=== PATIENT | male | born 1960 | race Caucasian/White ===

== ENCOUNTER 2021-01-29 01:01 | Day surgery (SDC) | payer OTHER, SELFPAY ==
[2021-01-20 14:49] VITALS: BMI 25.2
--- NOTE | 2021-01-28 14:07 | WPDANESEPPF ---
Anes - Initial Pre Proc Eval Procedure: Operation Date: 01/29/21 08:15 Proposed Procedures p Screening Colonoscopy - Alfredito Churchill MD Date/Time: 01/28/21 14:07 Surgeon: Alfredito Churchill MD Pre Op Diagnosis: neoplasm screening Patient Data Age: 60 Gender: M Height: 1.78 m Weight: 80 kg Allergies Allergy/AdvReac Type Severity Reaction Status Date / Time lisinopril Allergy Cough Verified 01/29/21 06:57 Home Medications Medication Instructions Recorded Confirmed Type rosuvastatin 10 mg tablet 10 mg PO DAILY #90 tablet 09/09/20 01/20/21 Rx amlodipine 5 mg tablet 5 mg PO DAILY #90 tablet 11/20/20 01/20/21 Rx losartan 50 mg tablet See Rx Instructions .ROUTE 12/16/20 01/20/21 Rx .COMPLEX #90 tablet cholecalciferol (vitamin D3) 125 125 mcg PO DAILY #1 cap 12/26/20 01/20/21 Rx mcg (5,000 unit) capsule Patient hx anesthesia problems: none Family hx anesthesia problems: none Results Review: All pre-operative results and documents have been reviewed as part of the pre-operative evaluation. [facility] Past Medical History Medical History (Updated 01/28/21 @ 14:07 by Keaton Moulton DO) Diabetes Essential hypertension Hernia (~2009) Hyperlipidemia Surgical History Surgical History History of hip surgery 1977 Family History Family History Father Heart disease Grandparent Heart disease Social History Social History (Updated 12/26/20 @ 08:56 by Laquita Ross CNA) Smoking status: Never smoker Second hand tobacco smoke exposure: No Alcohol intake: current Drinks per week: 2 Alcohol use details: pt drinks beer Substance use: former Substance use type: marijuana Anes - Eval Final PreProcedure Day of Procedure 01/28/21 14:07 Patient weight: overweight Heart: regular rate and rhythm Lungs: clear to auscultation and normal air movement Airway: Mallampati scale class III Neurological: alert and oriented Last oral intake: >/= 8 hours ASA classification: III Emergent: no Anesthetic plan: proceed Anesthesia type and monitoring: general GIVS and standard monitoring Results Review: All pre-operative results and documents have been reviewed as part of the pre-operative evaluation. Informed Consent: The patient's anesthetic plan and its attendant risks and benefits were discussed with the patient/family/POA. Questions were solicited and answers provided to the satisfaction of the patient/family/POA.
[2021-01-29 06:58] VITALS: BP 130/89; PULSE 72; RESP 18; TEMP 36.4; O2SAT 98
[2021-01-29] MEDS: LACTATED RINGERS 1,000 ML 150 ML IV CONT (07:07)
--- NOTE | 2021-01-29 08:02 | PM.HPGS ---
History of Present Illness History of Present Illness Consent: Risks, benefits, and alternatives have been discussed and questions answered. Patient agrees to proceed with procedure. Chief complaint: neoplasm screening Narrative: Cristhian Jurado is a 60 year old male here for first screening colonoscopy Review of Systems Constitutional: Constitutional: Denies headache(s) and Denies weakness Eyes: Eyes: Denies blurry vision ENT: Reports Normal hearing present, Denies headache(s) and Denies neck pain Cardiovascular: Cardiovascular: Denies chest pain and Denies dyspnea Respiratory: Respiratory: Denies dyspnea Gastrointestinal: Gastrointestinal: Reports no additional gastrointestinal complaints Genitourinary: Genitourinary: Denies dysuria Musculoskeletal: Musculoskeletal: Denies neck pain Integumentary/Breasts: Skin/Breast: Denies dry skin Neurologic: Reports Normal hearing present, Denies headache(s) and Denies weakness Psychiatric: Psychiatric: Denies anxiety Endocrine: Endocrine: Denies change in body appearance Hematologic/Lymphatic: Hematologic/Lymphatic: Denies easy bleeding Allergic/Immunologic: Allergic/Immunologic: Denies urticaria PMFSH Past Medical History Medical History (Updated 01/28/21 @ 14:07 by Keaton Moulton, ) Diabetes Essential hypertension Hernia (~2009) Hyperlipidemia Surgical History Surgical History History of hip surgery 1977 Family History Family History Father Heart disease Grandparent Heart disease Social History Social History (Updated 12/26/20 @ 08:56 by Laquita Ross CNA) Smoking status: Never smoker Second hand tobacco smoke exposure: No Alcohol intake: current Drinks per week: 2 Alcohol use details: pt drinks beer Substance use: former Substance use type: marijuana Meds Home Medications and Allergies Home Medications Medication Instructions Recorded Confirmed Type rosuvastatin 10 mg tablet 10 mg PO DAILY #90 tablet 09/09/20 01/20/21 Rx amlodipine 5 mg tablet 5 mg PO DAILY #90 tablet 11/20/20 01/20/21 Rx losartan 50 mg tablet See Rx Instructions .ROUTE 12/16/20 01/20/21 Rx .COMPLEX #90 tablet cholecalciferol (vitamin D3) 125 125 mcg PO DAILY #1 cap 12/26/20 01/20/21 Rx mcg (5,000 unit) capsule Allergies Allergy/AdvReac Type Severity Reaction Status Date / Time lisinopril Allergy Cough Verified 01/29/21 06:57 Vital Signs Vital Signs - 24 hr 01/29/21 06:58 Temperature 97.6 F Pulse Rate 72 Respiratory Rate 18 Blood Pressure 130/89 Pulse Oximetry 98 Exam Const: General: comfortable and no acute distress HENMT: General nose exam: Normal nares present Eyes: General: appearance normal, both eyes and all related structures Neck: Neck: no JVD Resp: Auscultation: clear to auscultation bilaterally Cardio: Rate: regular rate Rhythm: regular rhythm GI: Inspection: non-distended GI Palp: Yes Soft to palpation Skin: General skin exam: normal color Neuro: General: gait normal Speech: normal speech Extrem: General: normal to inspection Psych: Mental Status: mental status grossly normal Assessment and Plan Assessment and plan (1) Encounter for screening colonoscopy: Code(s): Z12.11 - Encounter for screening for malignant neoplasm of colon Status: Acute Assessment and Plan: colonoscopy
[2021-01-29 08:22] VITALS: BP 114/72; PULSE 60; RESP 17; O2SAT 100
[2021-01-29 08:32] VITALS: BP 122/84; PULSE 58; RESP 20; O2SAT 99
[2021-01-29 08:42] VITALS: BP 130/86; PULSE 55; RESP 16; O2SAT 100
== END 2021-01-29 08:56 | disposition home or self-care (01) ==
PROVIDERS: PCP Internal Medicine; Visit Provider Internal Medicine Gastroenterology
PROC: 0DJD8ZZ Inspection of Lower Intestinal Tract, Via Natural or Artificial Opening Endoscopic (ICD-10-PCS; CPT 45378; principal; 2021-01-29 08:15)
DX: Z12.11 Encounter for screening for malignant neoplasm of colon (principal); K64.8 Other hemorrhoids; I10 Essential (primary) hypertension; E78.5 Hyperlipidemia, unspecified; E11.9 Type 2 diabetes mellitus without complications
CPT/HCPCS: 45378; J2704; J7120

== ENCOUNTER 2021-03-02 13:06 | Emergency (ER) | payer OTHER, SELFPAY ==
--- NOTE | ~2021-03-02 | XR_ITS ---
EXAMINATION: XR shoulder RT min 2V DATE: 03/02/2021 14:44 INDICATION: Right shoulder injury. TECHNIQUE: 4 views of right shoulder were obtained. COMPARISON: None. FINDINGS: Bone alignment is normal. No fracture. There is mild osteoarthritis of acromioclavicular jennifer int. Glenohumeral joint is normal. IMPRESSION: 1. Mild osteoarthritis of acromioclavicular joint. Reviewed, dictated and finalized at location A. [employer]
[2021-03-02 13:11] VITALS: BP 165/99; PULSE 90; RESP 18; TEMP 36.6; O2SAT 99
[2021-03-02 17:53] VITALS: BP 146/93; PULSE 82; RESP 18; O2SAT 100
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
[2021-03-02] MEDS: IBUPROFEN 600 MG TABLET PO (18:00)
== END 2021-03-02 18:05 | disposition home or self-care (01) ==
PROVIDERS: Emergency Provider Emergency Medicine; PCP Internal Medicine
DX: S40.011A Contusion of right shoulder, initial encounter (principal); E11.9 Type 2 diabetes mellitus without complications; I10 Essential (primary) hypertension; E78.5 Hyperlipidemia, unspecified; M19.011 Primary osteoarthritis, right shoulder; Y04.2XXA Assault by strike against or bumped into by another person, initial encounter
CPT/HCPCS: 73030; 99283; A4565; A9270